=== PATIENT | male | born 1985 | race Caucasian/White ===

== ENCOUNTER 2021-12-11 10:22 | Emergency (ER) | payer OTHER ==
[2021-12-11 10:53] VITALS: BP 128/74; PULSE 80; TEMP 97.9; BMI 33.4
[2021-12-11] MEDS ORDERED: KETOROLAC TROMETHAMINE 30 MG/1 ML VIAL IM ONE (11:27)
[2021-12-11] MEDS ORDERED: KETOROLAC TROMETHAMINE 30 MG/1 ML VIAL ONE (11:31)
== END 2021-12-11 13:07 | disposition home or self-care (01) ==
LOC: JERFT 10:22
PROC: 3E023GC Introduction of Other Therapeutic Substance into Muscle, Percutaneous Approach (ICD-10-PCS; principal; 2021-12-11)
DX: M25.531 Pain in right wrist (principal)
CPT/HCPCS: 73110-TC-RT-FY; 73130-TC-RT-FY; 99284-25